=== PATIENT | female | born 1965 | race African-American/Black ===

== ENCOUNTER → 2024-09-28 14:37 | Outpatient (REF) | payer SELFPAY ==
--- NOTE | 2024-10-12 15:03 | OID.L.PAT ---
Pulmonary Nodule Pat Letter
- -
10/12/24
AROLDO NOVA
[address]
Binu ARAMBULA
Rehana KENDRICK,
A pulmonary nodule was seen on an imaging study done by [facility]. This was reviewed by the [facility] Pulmonary Nodule Advisory Board and the following recommendation was made:
Recommendation: Follow up CT Chest in 3 months.
If you have any questions, please do not hesitate to contact your primary care physician. If you are in need of a Physician, you can go to [email or web address] and click on 'Find a Provider'. Type 'Family Medicine' in the search.
Oncology Nurse Navigator
[facility]
[phone]
--- NOTE | 2024-10-12 15:04 | OID.L.REC ---
Pulmonary Nodule Follow Up
- Recommendation
10/12/24
Pulmonary Nodule Review Recommendations
Your patient, AROLDO NOVA, had a pulmonary nodule seen on an imaging study done on 09/28/2024 in the [facility] Radiology Department.
This was reviewed by the [facility] Pulmonary Nodule Advisory Board and the following recommendation was made:
Recommendation: Follow up CT Chest in 3 months.
If you have any questions, please do not hesitate to contact us.
Sincerely,
Oncology Nurse Navigator
[facility]
[phone]
== END ==
LOC: HWRAD 14:37
PROVIDERS: ATTENDING PHYSICIAN Internal Medicine
DX: E78.5 Hyperlipidemia, unspecified (principal); Z82.49 Family history of ischemic heart disease and other diseases of the circulatory system
CPT/HCPCS: 75571

== ENCOUNTER → 2024-10-22 11:55 | Outpatient (REF) | payer BC, SELFPAY ==
[2024-10-22 19:03] LABS: Hepatitis A Antibody, Total Positive (Negative); Hepatitis C Antibody Negative (Negative)
== END ==
LOC: WDC 11:55
PROVIDERS: ATTENDING PHYSICIAN Advanced Practice Midwife; FAMILY PHYSICIAN Internal Medicine
DX: M85.80 Other specified disorders of bone density and structure, unspecified site (principal); Z12.31 Encounter for screening mammogram for malignant neoplasm of breast; Z01.84 Encounter for antibody response examination; Z11.59 Encounter for screening for other viral diseases
CPT/HCPCS: 36415; 77063; 77067; 77080; 86706; 86708; 86803

== ENCOUNTER → 2025-01-05 11:39 | Outpatient (REF) | payer BC, SELFPAY | LOC: HWRAD 11:39 | PROVIDERS: ATTENDING PHYSICIAN Internal Medicine | DX: R91.1 Solitary pulmonary nodule (principal) | CPT/HCPCS: 71250 ==